=== PATIENT | male | born 1980 | race Asian ===

== ENCOUNTER 2020-05-11 08:28 | Emergency (ER) | payer SELFPAY ==
[~2020-05-11] VITALS: Ht 175.3 cm; Wt 90.0 kg
[2020-05-11] MEDS ORDERED: PREDNISONE10 MG PO (09:58)
[2020-05-11] MEDS ORDERED: VENTOLIN HFA IN (09:58)
[2020-05-11 10:02] VITALS: BP 165/91
== END 2020-05-11 10:09 | disposition home or self-care (01) | DRG 916 ==
LOC: ED 08:28
DX: T80.52XA Anaphylactic reaction due to vaccination, initial encounter (principal); T50.B95A Adverse effect of other viral vaccines, initial encounter; J45.909 Unspecified asthma, uncomplicated; I10 Essential (primary) hypertension; Y84.8 Other medical procedures as the cause of abnormal reaction of the patient, or of later complication, without mention of misadventure at the time of the procedure
CPT/HCPCS: J0171